=== PATIENT | male | born 1960 | race Caucasian/White ===

== ENCOUNTER → 2017-03-30 | Outpatient (CLI) | payer OTHER ==
[~2017-03-30] MED LIST: ACETAMINOPHEN325 M1 PO; BACLOFEN; BACLOFEN 10MG T10 M1 PO; BACLOFEN IMPLANT; CENTRUM TABLET1 TAB PO; COLACE100 MG PO; COMPAZINE10 M1 PO; FLEXERIL PO; MOM OR; MOM PO; PRILOSEC 20 MG20 MG PO; PROAIR HFA8.5 GM IH; ROBITUSSIN CF PO; VITAMIN D250000 UNIT PO
--- NOTE | ~2017-03-30 | HPC ---
[facility] [place] [address] PAIN MANAGEMENT CONSULTATION Name: DEANDRE SHELLEY [id number] Admission: 03/30/17 Attend Phys: Parminder Altamirano MD Discharge: Date of : 60 Report #: [id number] THIS REPORT FOR: //name// CC: Fifi Nimishadarryn Parminder Altamirano DATE OF SERVICE: 03/30/2017 DATE OF REGISTRATION: 03/30/2017. REASON FOR VISIT: Followup visit for spasticity related to spinal cord injury, refill of intrathecal infusion pump. HISTORY OF PRESENT ILLNESS: The patient returns to the pain clinic today for renewal of his intrathecal baclofen. He has a new pump placed by Dr. Deandre Reina. He has about 6 months between refills and says that he is doing well. His spasticity was better controlled after he got the new pump. PHYSICAL EXAMINATION: VITAL SIGNS: His blood pressure 112/79, heart rate 92, respirations 14. GENERAL: His affect is pleasant. He is very easy going and accepting of his unfortunate debility. He lives in a nursing facility and has always been very stoic about his paralysis. He is wheelchair bound. His pump is in good location and nontender. Incision has healed nicely. IMPRESSION: 1. Spasticity related to spinal cord injury. 2. Refill, reprogramming of intrathecal infusion pump. PROCEDURE: Skin was prepped with ChloraPrep. Skin anesthetized, and a 22-gauge non-coring needle advanced in the pump. Old medication removed and discarded. Baclofen 40 mL 4000 mcg/mL was instilled into the pump and reprogramming session performed. His low reservoir alarm date will now be on 09/13/2017, and we will see him back just before then. By: [id number] Parminder Altamirano MD /nt
[2017-03-30 13:49] VITALS: BP 112/79
== END ==
LOC: PAIN 06:16
DX: Z45.1 Encounter for adjustment and management of infusion pump (principal); F17.210 Nicotine dependence, cigarettes, uncomplicated

== ENCOUNTER → 2018-02-11 | Outpatient (CLI) | payer OTHER ==
[~2018-02-11] VITALS: Ht 182.9 cm; Wt 55.8 kg
[~2018-02-11] MED LIST changes: +HYDROCODONE-AP1 EAC6 PO
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
[2018-02-11 12:45] VITALS: BP 103/69
== END | disposition home or self-care (01) ==
LOC: PAIN 06:14
DX: Z45.1 Encounter for adjustment and management of infusion pump (principal); F17.210 Nicotine dependence, cigarettes, uncomplicated

== ENCOUNTER → 2018-12-13 | Outpatient (CLI) | payer OTHER ==
[~2018-12-13] VITALS: Ht 182.9 cm; Wt 59.0 kg
[~2018-12-13] MED LIST changes: +COLACE 100 MG100 MG PO
--- NOTE | ~2018-12-13 | HPC ---
[facility] [address] [place] [address] PAIN MANAGEMENT CONSULTATION Name: DEANDRE SHELLEY Room #: REG [facility]..#: [id number] Admission: 12/13/18 ������������������ Attend Phys: Parminder Altamirano MD Discharge: ������������������ Date of : 60 Report #: [id number] THIS REPORT FOR: //name// CC: KULDEEP MATTHEWS DO Kuldeep Nimishadarryn Parminder Altamirano DATE OF SERVICE: 12/13/2018 Followup visit for refill and reprogramming of intrathecal infusion pump. I last saw Deandre on 07/05/2018. We felt that he was moving to [place] and that we would no longer be providing for his intrathecal pump. Unfortunately, he was unable to make them the move. He is now back in [place] and living at another nursing facility. He has baclofen for treatment of spasticity related to closed head injury. He is debilitated and cannot care for himself. PHYSICAL EXAMINATION: He is pleasant, alert, oriented. No signs of depression or anxiety. His blood pressure is 134/83, heart rate 74, respirations 14. Pain intensity is 0/10. His BMI is 17.6. He is in a wheelchair. He has limited movement of all extremities with mild spasticity. Spasticity is controlled by intrathecal pump. IMPRESSION: 1. 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 2. Chronic debility. 3. Management of intrathecal infusion pump with baclofen at a rate of 910 mcg per day. PROCEDURE: Reprogramming and refill. Skin was prepped with ChloraPrep. Skin anesthetized and a 22-gauge non-coring needle advanced into the intrathecal pump. Old medication was removed and discarded per protocol. Pump was refilled then with baclofen 4000 mcg/mL and reprogramming session performed. His daily dose is 910 mcg. His next refill is scheduled for 05/28/2019. His KAPIL for this pump is 56 months. No oral medications were provided. ��������������������������������������������� ���������������������������������������� By: ��������������������������������������������� 1619 0026 Parminder Altamirano MD /nt
[2018-12-13 11:16] VITALS: BP 134/83
--- NOTE | 2018-12-13 11:35 | NUR ---
Pain Clinic Assessment: 1. History of Osteoarthritis: Not Applicable History of Rheumatoid Arthritis: Not Applicable 2. Height: 6 ft. 0 in. 182.9 cm. Weight: 130.0 lb. oz. 58.968 kg. Patient's BMI: 17.6 3. Vital Signs: BP: 134/83 Pulse: 74 Resp: 14 Temp: 02 Sat: 97 ECG Mon: 4. Pain Intensity: 0 5. Fall Risk: Dizziness: N Needs help standing or walking: Y Fallen in the last 3 months: N Fall risk comments: 6. Patient on Blood Thinner: None 7. History of Hypertension: N 8. Opioid Therapy greater than 6 weeks: N Opiate Contract Signed: 9. Risk Assessment Tool Provided: LOW RISK 0/3 10. Functional Assessment Tool: 11. Recreational Drug Use: Never Drug Type: Tobacco Use: Current Every Day Smoker Tobacco Type: Cigarettes Amount or Packs/day: How Many Years: Alcohol Use: Past use Frequency: Quant:
== END | disposition home or self-care (01) ==
LOC: PAIN 07:04
DX: Z45.1 Encounter for adjustment and management of infusion pump (principal); F17.210 Nicotine dependence, cigarettes, uncomplicated; Z88.8 Allergy status to other drugs, medicaments and biological substances; Z79.899 Other long term (current) drug therapy

== ENCOUNTER → 2019-05-26 | Outpatient (CLI) | payer OTHER ==
[~2019-05-26] VITALS: Ht 182.9 cm; Wt 54.4 kg
--- NOTE | ~2019-05-26 | HPC ---
[facility] [address] [place] [address] PAIN MANAGEMENT CONSULTATION Name: DEANDRE SHELLEY Room #: REG CL Deanna.#: [id number] Admission: 05/26/19 ������������������ Attend Phys: Parminder Altamirano MD Discharge: ������������������ Date of : 60 Report #: [id number] THIS REPORT FOR: //name// CC: Fifi Nimishadarryn Parminder Altamirano DATE OF SERVICE: 05/26/2019 Followup visit for management of intrathecal infusion pump with refill and reprogramming. Chronic spasticity related to closed head injury. The patient is in the clinic today for refill of his pump. He is doing well. He does not need an adjustment in his medication. There have not been significant changes in his life at this time. Lives in a nursing facility in [place]. He is unable to care for himself. He has significant spasticity and the intrathecal pump and has been able to manage that for him. PQRS REVIEW: 1. Denies history of osteoarthritis or rheumatoid arthritis. 2. BMI is 16.3. This is a normal, underweight BMI, but unchanged from previous visits by any significant degree. 3. Blood pressure 130/74, heart rate 56, respirations 14. 4. Pain intensity 1-2/10. 5. No fall risk, although he is wheelchair bound and needs help standing and walking. 6. He is on no blood thinners. 7. No history of hypertension. 8. He is not on opioids. 9. Denies use of alcohol, but smokes half pack of cigarettes a day. PHYSICAL EXAMINATION: VITAL SIGNS: Are as noted. GENERAL: He is pleasant, alert and oriented. CHEST: His chest is clear. HEART: His cardiac rhythm is regular. Pump is in the right lower quadrant, nontender. Mild spasticity is noted. IMPRESSION: 1. 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 2. Chronic debility. 3. Refill of intrathecal infusion pump and reprogramming session. PROCEDURE: Skin was prepped with ChloraPrep and 22-gauge non-coring needle advanced into the intrathecal pump. Old medication reviewed and discarded per protocol. Pump was then refilled with baclofen 4000 mcg/mL and reprogramming session performed. Daily dose left, unchanged at 910 mcg of baclofen per day. [facility] [address] [place] [address] PAIN MANAGEMENT CONSULTATION Name: DEANDRE SHELLEY Room #: REG [facility]#: [id number] Admission: 05/26/19 ������������������ Attend Phys: Parminder Altamirano MD Discharge: ������������������ Date of : 60 Report #: [id number] Programming information was checked by myself and the nurse and a copy was given to the patient. His next refill is not scheduled until October 2019. Followup visit at that time. ��������������������������������������������� ���������������������������������������� By: ��������������������������������������������� 1420 0103 Parminder Altamirano MD /nt
[2019-05-26 10:33] VITALS: BP 130/74
--- NOTE | 2019-05-26 10:41 | NUR ---
Pain Clinic Assessment: 1. History of Osteoarthritis: Not Applicable History of Rheumatoid Arthritis: Not Applicable 2. Height: 6 ft. 0 in. 182.9 cm. Weight: 120.0 lb. oz. 54.432 kg. Patient's BMI: 16.3 3. Vital Signs: BP: 130/74 Pulse: 56 Resp: 14 Temp: 02 Sat: 96 ECG Mon: 4. Pain Intensity: 1-2 5. Fall Risk: Dizziness: N Needs help standing or walking: Y Fallen in the last 3 months: N Fall risk comments: 6. Patient on Blood Thinner: None 7. History of Hypertension: N 8. Opioid Therapy greater than 6 weeks: N Opiate Contract Signed: 9. Risk Assessment Tool Provided: LOW RISK 0/3 10. Functional Assessment Tool: 11. Recreational Drug Use: Never Drug Type: Tobacco Use: Current Every Day Smoker Tobacco Type: Cigarettes Amount or Packs/day: 1/2 PACK/DAY How Many Years: Alcohol Use: Past use Frequency: Quant:
== END | disposition home or self-care (01) ==
LOC: PAIN 06:43
DX: Z45.1 Encounter for adjustment and management of infusion pump (principal); G80.9 Cerebral palsy, unspecified; F17.210 Nicotine dependence, cigarettes, uncomplicated; Z79.891 Long term (current) use of opiate analgesic; Z88.8 Allergy status to other drugs, medicaments and biological substances; Z79.899 Other long term (current) drug therapy; Z98.890 Other specified postprocedural states

== ENCOUNTER → 2019-11-03 | Outpatient (CLI) | payer OTHER ==
[~2019-11-03] VITALS: Ht 182.9 cm; Wt 58.1 kg
--- NOTE | ~2019-11-03 | HPC ---
[facility] [address] [place] [address] PAIN MANAGEMENT CONSULTATION Name: DEANDRE SHELLEY Room #: REG [facility] Deanna.#: [id number] Admission: 11/03/19 Attend Phys: Parminder Altamirano MD Discharge: Date of : 60 Report #: [id number] THIS REPORT FOR: //name// CC: Fifi Montenegro DO Fifi Marknaadarryn Parminder Altamirano DATE OF SERVICE: 11/03/2019 Followup visit for management of intrathecal infusion pump and treatment of spasticity. The patient is a longstanding patient who we see at roughly 4-month intervals to 5-month intervals for refill of an intrathecal infusion pump. He has a pump related to spasticity caused by closed head injury. There have been no significant changes in his health or social history. He is living in a nursing facility. He remains positive and upbeat and accepting of his lot in life. He does report there may be changes coming in 2020. He has a sister who lives in [place]. He may go down to live closer to her. There are a number of details yet to be arranged including where he will live. We talked about his intrathecal pump today in relationship to his move. I will be meeting tomorrow with [employer] representatives and will ask them for someone close to his potential move to manage his pump should he transfer his care. PQRS review is positive for osteoarthritis, although he is so immobile, he essentially does not have significant arthritic pains. His BMI is low, 17.4, normal for him. Blood pressure 131/83, heart rate 85, respirations 18, O2 sat 99 on room air. Pain intensity is 1. He has not fallen in the last 3 months and takes great care in his transfers. I would consider him a fall risk, although he has been extremely cautious. He is on no blood thinning medications and has no treatments for hypertension. He is not on an opioid agreement, but has completed an opioid risk tool as all our patients do. His score is 0. He denies use of alcohol, but has past use. He is a current everyday smoker, smoking a half pack per day. We discussed quitting in 2019 and strategies were reviewed. PHYSICAL EXAMINATION: Pleasant, alert and oriented. He is wheelchair bound. His chest is clear. His cardiac rhythm is regular. His pump is in the right lower quadrant, nontender. Minimal spasticity is noted today. He has some spasticity noted in both upper and lower extremities affecting movements. IMPRESSION: 1. 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 [facility] [address] [place] [address] PAIN MANAGEMENT CONSULTATION Name: DEANDRE SHELLEY Room #: REG CL[facility]#: [id number] Admission: 11/03/19 Attend Phys: Parminder Altamirano MD Discharge: Date of : 60 Report #: [id number] 2. Chronic debility. 3. Management with refill and reprogramming of intrathecal infusion pump. PROCEDURE: Skin was prepped with ChloraPrep and a 22-gauge non-coring needle advanced into the intrathecal pump. Old medication removed and discarded. Pump was then refilled with baclofen 4000 mcg per mL and a reprogramming session was performed. His daily dose is 910 mcg and has been stable for a number of years. Reviewing back through my records, I see that he has been at 900 since April 2009. Information was checked by myself and the nurse and he was given a copy at discharge of his programming information for his records. His next scheduled refill in our clinic is for 04/15/2020. By: 1346 [id number] Parminder Altamirano MD /nt
[2019-11-03 10:23] VITALS: BP 131/83
--- NOTE | 2019-11-03 11:01 | NUR ---
Pain Clinic Assessment: 1. History of Osteoarthritis: Not Applicable History of Rheumatoid Arthritis: Not Applicable 2. Height: 6 ft. 0 in. 182.9 cm. Weight: 128.0 lb. oz. 58.060 kg. Patient's BMI: 17.4 3. Vital Signs: BP: 131/83 Pulse: 85 Resp: 18 Temp: 02 Sat: 99 ECG Mon: 4. Pain Intensity: 1 5. Fall Risk: Dizziness: N Needs help standing or walking: N Fallen in the last 3 months: N Fall risk comments: 6. Patient on Blood Thinner: None 7. History of Hypertension: N 8. Opioid Therapy greater than 6 weeks: N Opiate Contract Signed: 9. Risk Assessment Tool Provided: LOW RISK 0/3 10. Functional Assessment Tool: 11. Recreational Drug Use: Never Drug Type: Tobacco Use: Current Every Day Smoker Tobacco Type: Amount or Packs/day: How Many Years: Alcohol Use: Past use Frequency: Quant:
== END | disposition home or self-care (01) ==
LOC: PAIN 10:09
DX: Z45.1 Encounter for adjustment and management of infusion pump (principal); R25.2 Cramp and spasm; M19.90 Unspecified osteoarthritis, unspecified site; R53.81 Other malaise; F17.210 Nicotine dependence, cigarettes, uncomplicated; Z98.890 Other specified postprocedural states; Z87.820 Personal history of traumatic brain injury; Z79.899 Other long term (current) drug therapy; Z88.8 Allergy status to other drugs, medicaments and biological substances

== ENCOUNTER → 2020-04-12 | Outpatient (CLI) | payer OTHER ==
[2020-04-12 14:35] VITALS: BP 118/77
--- NOTE | 2020-04-12 15:04 | NUR ---
Pain Clinic Assessment: 1. History of Osteoarthritis: Not Applicable History of Rheumatoid Arthritis: Not Applicable 2. Height: ft. in. cm. Weight: 120.0 lb. oz. 54.432 kg. Patient's BMI: 3. Vital Signs: BP: 118/77 Pulse: 70 Resp: 14 Temp: 02 Sat: 97 ECG Mon: 4. Pain Intensity: 1 5. Fall Risk: Dizziness: N Needs help standing or walking: Y Fallen in the last 3 months: N Fall risk comments: 6. Patient on Blood Thinner: None 7. History of Hypertension: N 8. Opioid Therapy greater than 6 weeks: N Opiate Contract Signed: 9. Risk Assessment Tool Provided: LOW RISK 0 10. Functional Assessment Tool: 11. Recreational Drug Use: Never Drug Type: Tobacco Use: Current Every Day Smoker Tobacco Type: Cigarettes Amount or Packs/day: 1/2 pack How Many Years: 20 Alcohol Use: Past use Frequency: Quant:
--- NOTE | 2020-04-20 15:51 | HPC ---
[facility] [address] [place] [address] PAIN MANAGEMENT CONSULTATION Name: DEANDRE SHELLEY Room #: REG [facility]..#: [id number] Admission: 04/12/20 Attend Phys: Parminder Altamirano MD Discharge: Date of : 60 Report #: [id number] THIS REPORT FOR: cc: Fifi Montenegro,Fifi Medina,Parminder Ham MD ~ CC: Fifi Altamirano DATE OF SERVICE: 04/12/2020 Followup visit for refill and reprogramming of intrathecal infusion pump. Chronic spasticity. The patient is here today for refill and reprogramming of his intrathecal pump. No adjustments are necessary. Spasticity is well controlled. Current infusion rate for his intrathecal baclofen is 910 mcg per day. PQRS review is positive for some arthritis. He is wheelchair bound and relatively immobile due to spinal cord injury. BMI is 17.6. Blood pressure 118/77, heart rate 70, respirations 14, O2 sat 100% on room air. Pain intensity is 0. He has not fallen and is careful with transfers. No blood thinning medications. No treatment for hypertension. No opioids. Continues to smoke half pack a day. We discussed quitting once again. It is difficult for him to smoke with the COVID restrictions he has to go out on a deck and can no longer go outside. He seems a bit depressed today because of the COVID issues. IMPRESSION: 1. Chronic spasticity related to closed head injury. 2. Chronic debility. 3. Management and refill, reprogramming of intrathecal infusion pump. PROCEDURE: Skin was prepped with ChloraPrep. Skin anesthetized and a 22-gauge non-coring needle advanced in the pump. Old medication removed and discarded per protocol. Pump was then refilled with baclofen 4000 mcg/mL and reprogrammed to provide 910 mcg per day. Refill is scheduled for 08/2020. Followup visit will be sometime in mid August. <ELECTRONICALLY SIGNED> By: Parminder Altamirano MD 04/20/20 1551 [id number] [id number] Parminder Altamirano MD /nt
== END | disposition home or self-care (01) ==
LOC: PAIN 08:20
PROVIDERS: ATTEND Anesthesiology Pain Medicine
DX: Z45.1 Encounter for adjustment and management of infusion pump (principal); G89.29 Other chronic pain; R25.2 Cramp and spasm; Z87.828 Personal history of other (healed) physical injury and trauma; Z98.890 Other specified postprocedural states; Z79.899 Other long term (current) drug therapy; Z88.8 Allergy status to other drugs, medicaments and biological substances

== ENCOUNTER → 2020-09-17 | Outpatient (CLI) | payer OTHER ==
[2020-09-17 13:41] VITALS: BP 123/70
--- NOTE | 2020-09-17 13:51 | NUR ---
Pain Clinic Assessment: 1. History of Osteoarthritis: Not Applicable History of Rheumatoid Arthritis: Not Applicable 2. Height: ft. in. cm. Weight: 130.0 lb. oz. 58.968 kg. Patient's BMI: 3. Vital Signs: BP: 123/70 Pulse: 77 Resp: 16 Temp: 02 Sat: 98 ECG Mon: 4. Pain Intensity: 1 5. Fall Risk: Dizziness: N Needs help standing or walking: Y Fallen in the last 3 months: N Fall risk comments: 6. Patient on Blood Thinner: None 7. History of Hypertension: N 8. Opioid Therapy greater than 6 weeks: N Opiate Contract Signed: 9. Risk Assessment Tool Provided: LOW RISK 0 10. Functional Assessment Tool: 11. Recreational Drug Use: Never Drug Type: Tobacco Use: Current Every Day Smoker Tobacco Type: Cigarettes Amount or Packs/day: 1/2 How Many Years: 40 Alcohol Use: Past use Frequency: Quant:
== END | disposition home or self-care (01) ==
LOC: PAIN 06:53
PROVIDERS: ATTEND Anesthesiology Pain Medicine
DX: Z45.1 Encounter for adjustment and management of infusion pump (principal); R25.2 Cramp and spasm; G89.29 Other chronic pain; F17.210 Nicotine dependence, cigarettes, uncomplicated; Z98.890 Other specified postprocedural states; Z79.899 Other long term (current) drug therapy; Z88.8 Allergy status to other drugs, medicaments and biological substances

== ENCOUNTER → 2021-02-28 | Outpatient (CLI) | payer OTHER ==
[2021-02-28 11:04] VITALS: BP 145/81
--- NOTE | 2021-02-28 11:12 | NUR ---
Pain Clinic Assessment: 1. History of Osteoarthritis: Not Applicable History of Rheumatoid Arthritis: Not Applicable 2. Height: ft. in. cm. Weight: 130.0 lb. oz. 58.968 kg. Patient's BMI: 3. Vital Signs: BP: 145/81 Pulse: 70 Resp: 14 Temp: 02 Sat: 97 ECG Mon: 4. Pain Intensity: 1 5. Fall Risk: Dizziness: N Needs help standing or walking: Y Fallen in the last 3 months: N Fall risk comments: 6. Patient on Blood Thinner: None 7. History of Hypertension: N 8. Opioid Therapy greater than 6 weeks: N Opiate Contract Signed: 9. Risk Assessment Tool Provided: LOW RISK 0 10. Functional Assessment Tool: 11. Recreational Drug Use: Never Drug Type: Tobacco Use: Current Every Day Smoker Tobacco Type: Amount or Packs/day: How Many Years: Alcohol Use: Past use Frequency: Quant:
== END | disposition home or self-care (01) ==
LOC: PAIN 09:19
PROVIDERS: ATTEND Anesthesiology Pain Medicine
DX: Z45.1 Encounter for adjustment and management of infusion pump (principal); R25.2 Cramp and spasm; G89.29 Other chronic pain; F17.210 Nicotine dependence, cigarettes, uncomplicated; Z98.890 Other specified postprocedural states; Z79.899 Other long term (current) drug therapy

== ENCOUNTER → 2021-08-08 | Outpatient (CLI) | payer OTHER ==
[2021-08-08 10:00] VITALS: BP 143/87
--- NOTE | 2021-08-08 11:00 | NUR ---
Pain Clinic Assessment: 1. History of Osteoarthritis: Not Applicable History of Rheumatoid Arthritis: Not Applicable 2. Height: ft. in. cm. Weight: lb. oz. kg. Patient's BMI: 3. Vital Signs: BP: 143/87 Pulse: 67 Resp: 14 Temp: 02 Sat: 97 ECG Mon: 4. Pain Intensity: 0 5. Fall Risk: Dizziness: N Needs help standing or walking: Y Fallen in the last 3 months: N Fall risk comments: 6. Patient on Blood Thinner: None 7. History of Hypertension: N 8. Opioid Therapy greater than 6 weeks: N Opiate Contract Signed: 9. Risk Assessment Tool Provided: LOW RISK 0 10. Functional Assessment Tool: 11. Recreational Drug Use: Never Drug Type: Tobacco Use: Current Every Day Smoker Tobacco Type: Cigarettes Amount or Packs/day: 1/2 How Many Years: 40 Alcohol Use: Past use Frequency: Quant:
== END | disposition home or self-care (01) ==
LOC: PAIN 06:50
PROVIDERS: ATTEND Anesthesiology Pain Medicine
DX: Z45.1 Encounter for adjustment and management of infusion pump (principal); R25.2 Cramp and spasm; G89.29 Other chronic pain; F17.210 Nicotine dependence, cigarettes, uncomplicated; Z98.890 Other specified postprocedural states; Z79.899 Other long term (current) drug therapy; Z88.8 Allergy status to other drugs, medicaments and biological substances